=== PATIENT | male | born 1970 | race Caucasian/White ===

== ENCOUNTER → 2018-08-20 | Day surgery (SDC) | payer OTHER ==
[~2018-08-20] MED LIST: COLACE100 MG PO; NEURONTIN300 MG PO; ULTRACET PO
== END | disposition home or self-care (01) ==
LOC: ADM 08-12 10:15 → CIR.AMB 05:27
DX: K42.0 Umbilical hernia with obstruction, without gangrene (principal)

== ENCOUNTER 2021-09-07 07:25 | Outpatient (CLI) | payer OTHER | END 2021-09-07 07:26 | disposition home or self-care (01) | LOC: RX STUDY 07:25 | DX: R13.10 Dysphagia, unspecified (principal) ==